=== PATIENT | female | born 1950 | race Two or more races ===

== ENCOUNTER 2017-01-30 22:57 | Inpatient (IN) | payer MEDICARE, MEDICAID ==
[~2017-01-30] VITALS: Ht 165.1 cm; Wt 104.3 kg
[~2017-01-30 22:57] MED LIST: ATOR40TA PO; BENA40TA2 PO; CARV25TA PO; DILT120C2 PO; FURO20TA4 PO; GABA-534 PO; GLIP10TA11 PO; HYDR-3652 PO; HYDR-4076 PO; INSU100V10 SQ; MECL-102 PO; OMEP20TA68 PO; WARF2.5T6 PO
--- NOTE | 2017-01-30 23:05 | NUR ---
To bed 5 a 66 yo female bibniece with c/o sob x2days, per patient she has history of chf and the sob has gotten "worse today." Patient is aaox4, dyspneic, tachypneic at 24, satting at 89-92% on room air, afib controlled at 80's on the monitor. Kept hob elevated. electroformer on. Gowned. Initiated comfort measures. Awaiting for er md espinosa.
[2017-01-30] MEDS ORDERED: FUROSEMIDE 40 MG/4 ML VIAL ONE (23:28)
[2017-01-30] MEDS ORDERED: NITROGLYCERIN PACKET 1 GM PACKET ONE (23:28)
--- NOTE | 2017-01-30 23:29 | NUR ---
started a saline lock on the lac g18, blood drawn and sent to lab.
[2017-01-30] MEDS ORDERED: NITROGLYCERIN PACKET 1 GM PACKET TD ONE (23:30)
[2017-01-30] MEDS ORDERED: FUROSEMIDE 40 MG/4 ML VIAL IV ONE (23:30)
--- NOTE | 2017-01-30 23:36 | NUR ---
Medicated patient as ordered by .
[2017-01-30 23:38] LABS: BASOPHILS % (AUTO) 0.1 % (0.0-2.0); EOSINOPHILS # (AUTO) 0.3 /CMM (0.0-0.7); EOSINOPHILS % (AUTO) 2.5 % (0.0-6.0); HEMATOCRIT 34 % (33-45); LYMPHOCYTES # (AUTO) 1.2 /CMM (0.8-4.8); LYMPHOCYTES % (AUTO) 10.4 % (20.0-44.0); MEAN CORPUSCULAR HEMOGLOBIN 27 PG (26.0-33.0); MEAN CORPUSCULAR HGB CONC 32 g/dl (31.0-36.0); MEAN CORPUSCULAR VOLUME 84 fL (82-100); MONOCYTES # (AUTO) 0.6 /CMM (0.1-1.30); MONOCYTES % (AUTO) 4.7 % (2.0-12.0); NEUTROPHILS # (AUTO) 9.8 /CMM (1.8-8.9); NEUTROPHILS % (AUTO) 82.3 % (43.0-81.0); PLATELET COUNT (AUTO) 216 /CMM (150-450); RDW COEFFICIENT OF VARIATION 16.4 (11.5-15.0); RED BLOOD CELL COUNT(AUTO) 4.09 MIL/uL (4.0-5.2); WHITE BLOOD COUNT (AUTO) 11.9 K/uL (4.3-11.0)
[2017-01-30 23:47] LABS: CARBON DIOXIDE 37 mmol/L (21-32); CHLORIDE 102 mmol/L (98-107); GFR 55 mL/min (>60); GLUCOSE 133 mg/dL (74-106); POTASSIUM 4.9 mmol/L (3.5-5.1); SODIUM SERUM 140 mmol/L (136-145); UREA NITROGEN, BLOOD 27 mg/dL (7-18)
[2017-01-30 23:50] LABS: INR 1.06 (0.87-1.13); PROTHROMBIN TIME 11.4 SECS (9.5-12.7)
[2017-01-30] MEDS ORDERED: VENL75TA4 PO (23:52)
[2017-01-30] MEDS ORDERED: MAGN400T6 PO (23:52)
[2017-01-30] MEDS ORDERED: ASPI81TA2 PO (23:52)
[2017-01-30 23:55] LABS: TROPONIN I < 0.017 ng/mL (0.00-0.056)
[2017-01-30 23:59] LABS: ALANINE AMINOTRANSFERASE 51 U/L (12-78); ALBUMIN 3.2 g/dL (3.4-5.0); ALKALINE PHOSPHATASE 87 U/L (46-116); ASPARTATE AMINOTRANSFERASE 27 U/L (15-37); B-TYPE NATRIURETIC PEPTIDE 4201 PG/ML (0-125); BILIRUBIN,DIRECT 0.2 mg/dL (0.0-0.2); BILIRUBIN,TOTAL 0.8 mg/dL (0.2-1.0); TOTAL PROTEIN, SERUM 7.4 g/dL (6.4-8.2)
[2017-01-31] MEDS ORDERED: APIX5TAB PO (00:22)
[2017-01-31] MEDS ORDERED: FUROSEMIDE 40 MG/4 ML VIAL IV SCH (01:00)
[2017-01-31] MEDS ORDERED: MECLIZINE HCL 25 MG TABLET PO PRN (01:00)
--- NOTE | 2017-01-31 01:29 | NUR ---
transported to tele bed via als protocol, no incident noted.
[2017-01-31 01:39] VITALS: BP 136/90
--- NOTE | 2017-01-31 02:16 | NUR ---
RN NOTE. ADMISSION. RECEIVED THE PT FROM ER VIA [employer]. PT AWAKE, ALERT, FOLLOW COMMANDS. 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 SALINE LOCK. FC PATENT. URINE DRAINING. ARLIN LOWER EXTREMITY [id number] AND REDNESS. NOTED. ELEVATED WITH PILLOW. AFEBRILE. HOB ELEVATED. TURN AND REPOSITION PT INDEPENDENT. WILL CONTINUE TO MONITOR VITALS.
--- NOTE | 2017-01-31 02:37 | NUR ---
RN NOTES SPOKE TO DR CURTIS TO CLARIFY ORDERS. PATIENT RECEIVED LASIX 40MG IV IN ER @ 2330. ADMISSION ORDERS FOR LASIX 40MG IVP @0100. PER DR CURTIS, HOLD 0100 DOSE OF LASIX 40MG IVP
[2017-01-31 04:00] VITALS: BP 130/58
--- NOTE | 2017-01-31 06:18 | NUR ---
RN NOTE. AM CARE. ORAL CARE, BED BATH GIVEN. LINEN CHANGED. REMAINING SAME OXYGEN TOLERATED WELL. SAT 98%. NO ACUTE DISTRESS NOTED. 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 HOB ELEVATED. TURN AND REPOSITION Q2H. WILL CONTINUE TO MONITOR VITALS.
[2017-01-31 08:00] VITALS: BP 146/71
[2017-01-31] MEDS ORDERED: Medication Not On Formulary EA (Omeprazole 1 TAB) PO SCH (09:00)
[2017-01-31] MEDS ORDERED: GABAPENTIN 300 MG CAPSULE PO SCH (09:00)
[2017-01-31] MEDS ORDERED: BENAZEPRIL HCL 20 MG TABLET PO SCH (09:00)
[2017-01-31] MEDS: ASPIRIN 81 MG TAB.CHEW PO SCH (09:57)
[2017-01-31] MEDS: FUROSEMIDE 40 MG/4 ML VIAL IV SCH ×2 (09:57→17:12)
[2017-01-31] MEDS: DILTIAZEM HCL CD 120 MG PO SCH (09:58)
[2017-01-31] MEDS: MAGNESIUM OXIDE 400 MG TABLET PO SCH ×2 (09:59→17:12)
[2017-01-31] MEDS: VENLAFAXINE XR 75 MG CAP.SR.24H PO SCH (09:59)
[2017-01-31] MEDS: CARVEDILOL 12.5 MG TABLET PO SCH ×2 (09:59→21:06)
[2017-01-31] MEDS: glipiZIDE 10 MG TABLET PO SCH ×2 (09:59→17:12)
[2017-01-31] MEDS: hydrALAZINE HCL 25 MG TABLET PO SCH ×3 (10:01→17:13)
[2017-01-31] MEDS: PANTOPRAZOLE 40 MG/PACK PACK GT SCH (10:18)
[2017-01-31 12:00] VITALS: BP 139/66
[2017-01-31] MEDS: APIXABAN 5 MG TABLET PO SCH ×2 (12:14→17:14)
[2017-01-31 16:00] VITALS: BP 118/64
[2017-01-31] MEDS: ATORVASTATIN 40 MG TABLET PO SCH (17:12)
--- NOTE | 2017-01-31 19:40 | NUR ---
CONSTRUCTION LINEMAN INITIAL NOTES RECEIVED PATIENT AWAKE A/OX4, ABLE TO MAKE NEEDS KNOWN. DENIES PAIN OR DISCOMFORT. PATIENT STATES SHE'S COMFORTABLE AT THIS TIME. RESPIRATIONS EVEN AND UNLABORED ON 2LPMO2 VIA NC. DENIES SOB. ON TELE MONITOR AFIB CONTROLLED. SKIN WARM AND DRY TO TOUCH. WITH LAC 18G PATENT AND INTACT. SIDE RAILS UP AND LOCKED. BED KEPT AT LOWEST POSITION. CALL LIGHT KEPT WITHIN EASY REACH. WILL CONTINUE TO MONITOR.
[2017-01-31 20:00] VITALS: BP 126/74
[2017-01-31] MEDS: GABAPENTIN 300 MG CAPSULE PO SCH (21:07)
[2017-01-31] MEDS: INSULIN DETEMIR 100 UNIT/ML CARTRIDGE SQ SCH (21:08)
[2017-02-01] VITALS: BP 119/63
[2017-02-01 04:00] VITALS: BP 127/59
[2017-02-01 06:35] LABS: BASOPHILS % (AUTO) 0.3 % (0.0-2.0); EOSINOPHILS # (AUTO) 0.3 /CMM (0.0-0.7); EOSINOPHILS % (AUTO) 2.9 % (0.0-6.0); HEMATOCRIT 32 % (33-45); HEMOGLOBIN 10.3 g/dL (11.5-14.8); LYMPHOCYTES # (AUTO) 1.4 /CMM (0.8-4.8); LYMPHOCYTES % (AUTO) 14.7 % (20.0-44.0); MEAN CORPUSCULAR HEMOGLOBIN 27 PG (26.0-33.0); MEAN CORPUSCULAR HGB CONC 32 g/dl (31.0-36.0); MEAN CORPUSCULAR VOLUME 84 fL (82-100); MONOCYTES # (AUTO) 0.7 /CMM (0.1-1.30); MONOCYTES % (AUTO) 7.2 % (2.0-12.0); NEUTROPHILS # (AUTO) 7.1 /CMM (1.8-8.9); NEUTROPHILS % (AUTO) 74.9 % (43.0-81.0); PLATELET COUNT (AUTO) 194 /CMM (150-450); RDW COEFFICIENT OF VARIATION 16.3 (11.5-15.0); RED BLOOD CELL COUNT(AUTO) 3.85 MIL/uL (4.0-5.2); WHITE BLOOD COUNT (AUTO) 9.5 K/uL (4.3-11.0)
[2017-02-01 07:04] LABS: TROPONIN I < 0.017 ng/mL (0.00-0.056)
[2017-02-01 07:10] LABS: CHOLESTEROL 79 mg/dL (<200); HDL CHOLESTEROL 37 mg/dL (40-60); LDL 41 mg/dL (0-99); TRIGLYCERIDES 56 mg/dL (30-150)
[2017-02-01 07:14] LABS: ALANINE AMINOTRANSFERASE 37 U/L (12-78); ALBUMIN 2.8 g/dL (3.4-5.0); ALKALINE PHOSPHATASE 79 U/L (46-116); ASPARTATE AMINOTRANSFERASE 22 U/L (15-37); B-TYPE NATRIURETIC PEPTIDE 2408 PG/ML (0-125); BILIRUBIN,TOTAL 0.6 mg/dL (0.2-1.0); CALCIUM, SERUM 8.7 mg/dL (8.5-10.1); CARBON DIOXIDE 39 mmol/L (21-32); CHLORIDE 101 mmol/L (98-107); CREATININE 1.2 mg/dL (0.6-1.3); GFR 45 mL/min (>60); GLUCOSE 144 mg/dL (74-106); MAGNESIUM 1.7 mg/dL (1.8-2.4); POTASSIUM 4.6 mmol/L (3.5-5.1); SODIUM SERUM 143 mmol/L (136-145); TOTAL PROTEIN, SERUM 6.7 g/dL (6.4-8.2); UREA NITROGEN, BLOOD 34 mg/dL (7-18)
[2017-02-01] MEDS ORDERED: PANTOPRAZOLE 40 MG TABLET.DR PO SCH (07:30)
--- NOTE | 2017-02-01 07:30 | NUR ---
PLATE FITTER CLOSING NOTES NO SIGNIFICANT CHANGES OVERNIGHT. ALL NEEDS ANTICIPATED AND MET. STRICT I & O. NO C/O SOB. DENIES PAIN OR DISCOMFORT. AFIB CONTROLLED ON MONITOR. NO RESPIRATORY DISTRESS NOTED, ON 2LPMO2 VIA NC. SKIN WARM AND DRY TO TOUCH. HOB ELEVATED. F/C DRAINING. SIDE RAILS UP AND LOCKED. BED KEPT AT LOWEST POSITION. CALL LIGHT KEPT WITHIN EASY REACH. CONTINUITY OF CARE ENDORSED TO AM NURSE.
[2017-02-01 08:00] VITALS: BP 117/65
[2017-02-01] MEDS: PANTOPRAZOLE 40 MG/PACK PACK GT SCH (08:56)
[2017-02-01] MEDS: APIXABAN 5 MG TABLET PO SCH ×2 (08:56→17:10)
[2017-02-01] MEDS: VENLAFAXINE XR 75 MG CAP.SR.24H PO SCH (08:56)
[2017-02-01] MEDS: FUROSEMIDE 40 MG/4 ML VIAL IV SCH (08:56)
[2017-02-01] MEDS: ASPIRIN 81 MG TAB.CHEW PO SCH (08:56)
[2017-02-01] MEDS: glipiZIDE 10 MG TABLET PO SCH ×2 (08:57→17:10)
[2017-02-01] MEDS: MAGNESIUM OXIDE 400 MG TABLET PO SCH ×2 (08:57→17:10)
[2017-02-01] MEDS: CARVEDILOL 12.5 MG TABLET PO SCH ×2 (08:58→21:00)
[2017-02-01] MEDS: BENAZEPRIL HCL 10 MG TABLET PO SCH (08:59)
[2017-02-01] MEDS: DILTIAZEM HCL CD 120 MG PO SCH (08:59)
[2017-02-01] MEDS: hydrALAZINE HCL 25 MG TABLET PO SCH ×3 (08:59→17:10)
[2017-02-01 10:34] LABS: APPEARANCE,URINE SL CLOUDY (CLEAR); BILIRUBIN,URINE NEGATIVE (NEGATIVE); BLOOD, URINE 3+ Ery/uL (NEGATIVE); COLOR,URINE YELLOW (YELLOW); KETONES,URINE NEGATIVE (NEGATIVE); LEUKOCYTE ESTERASE ,URINE 1+ (NEGATIVE); NITRITE, URINE POSITIVE (NEGATIVE); PROTEIN,URINE 1+ mg/dl (NEGATIVE); UGLUCOSE NEGATIVE (NEGATIVE); UROBILINOGEN,URINE 0.2 EU/dL (0.2)
[2017-02-01 10:42] LABS: BACTERIA,URINE Many /HPF (None Seen)
[2017-02-01 10:43] LABS: ADD URINE CULTURE YES; HYALINE CASTS, URINE Rare /LPF (None Seen); SQUAMOUS EPITHELIAL CELL,UR Few /HPF (None Seen)
[2017-02-01 10:44] LABS: MUCUS,URINE Rare /LPF (None Seen)
[2017-02-01] MEDS ORDERED: IV SET PRIMARY PUMP SET 1 EA INFUS.SET MC ONE ×2 (11:24→15:30)
[2017-02-01] MEDS: Magnesium 1GM/D5W 100ML PREMIX 100 ML IV SCH ×2 (11:36→13:00)
[2017-02-01 12:00] VITALS: BP 120/73
[2017-02-01] MEDS: CEFTRIAXONE 1 G in IV D5W 50 ML IV SCH (15:41)
[2017-02-01 16:00] VITALS: BP 102/63
[2017-02-01] MEDS: ATORVASTATIN 40 MG TABLET PO SCH (17:10)
[2017-02-01 20:00] VITALS: BP 107/63
--- NOTE | 2017-02-01 20:00 | NUR ---
TRANSCRIPTIONIST NOTES RECEIVED PTS ON BED AWAKE ALERT AND RESPONSIVE ABLE TO MAKE NEEDS KNOWN. PTS ON TELE AFIB CONTROLLED ON THE MONITOR ON 2 LITERS OF 02 VIA NC SATING 96%.NO SOB NO DISTRESS NOTED DENIES PAIN AT THIS TIME , V/S STABLE AFEBRILE , ALL NEEDS ATTENDED TOO CALL LIGHT WITHIN REACH ALL DUE MEDS GIVEN ORDERED .KEPT PTS CLEAN DRY AND COMFORTABLE.
[2017-02-01] MEDS: GABAPENTIN 300 MG CAPSULE PO SCH (21:01)
[2017-02-01] MEDS: INSULIN DETEMIR 100 UNIT/ML CARTRIDGE SQ SCH (21:09)
--- NOTE | 2017-02-01 21:12 | NUR ---
VEGETABLE WASHER NOTES BLOOD SUGAR FOR 10 PM IS 188 =LEVEMIR 15 UNITS GIVEN ORDERED, PTS ON PO OFFERED SNACK, WILL CONTINUE TO MONITOR.
[2017-02-02] VITALS: BP 123/63
--- NOTE | 2017-02-02 02:55 | NUR ---
Pt. c/o right back and shoulder pain of 9 on the pain scale not relieved with repositioning. Called Dr. Vernell Thayer attractions associate MD. Order for Tramadol 50mg q8h prn pain. Given at 0303 and warm packs placed on pt's right scapula. Repositioned at this time to supine. Will continue to monitor and reassess pain as appropriate. Pt. vital signs stable at this time. Bp-125/56, hr-78, RR-20, Sat-945 on 2L/NC.
[2017-02-02] MEDS ORDERED: TRAMADOL HCL 50 MG TABLET ONE (02:57)
[2017-02-02] MEDS: TRAMADOL HCL 50 MG TABLET PO PRN ×3 (03:03→21:12)
[2017-02-02 04:00] VITALS: BP_SYST 132; BP_DIAS 62; BP_DIAS 63
--- NOTE | 2017-02-02 06:47 | NUR ---
Vital signs stable. In bed comfortable. Dozing intermittently. No significant changes. Will endorse to next shift for continuity of care.
--- NOTE | 2017-02-02 07:00 | NUR ---
RN NOTES RECEIVED PATIENT ON BED, A/OX4, ABLE TO MAKE NEEDS KNOWN. RESPIRATION EVEN AND UNLABORED , ON TELE MONITOR AFIB CONTROLLED. SKIN WARM AND DRY TO TOUCH. LAC 18G PATENT AND INTACT. SIDE RAILS UPx3, BED IS IN LOWEST POSITION AND LOCKED , CALL LIGHT WITHIN EASY REACH. WILL CONTINUE TO MONITOR PT CLOSELY AND NOTIFY MD FOR ANY SIGNIFICANT CHANGES
[2017-02-02 07:59] LABS: CALCIUM, SERUM 8.5 mg/dL (8.5-10.1); CREATININE 1.2 mg/dL (0.6-1.3); PHOSPHORUS 4.4 mg/dL (2.5-4.9); POTASSIUM 4.6 mmol/L (3.5-5.1)
[2017-02-02 08:00] VITALS: BP 141/69
[2017-02-02] MEDS: PANTOPRAZOLE 40 MG/PACK PACK GT SCH (08:59)
[2017-02-02] MEDS: FUROSEMIDE 40 MG/4 ML VIAL IV SCH ×2 (08:59→16:32)
[2017-02-02] MEDS: VENLAFAXINE XR 75 MG CAP.SR.24H PO SCH (09:00)
[2017-02-02] MEDS: glipiZIDE 10 MG TABLET PO SCH ×2 (09:00→16:31)
[2017-02-02] MEDS: ASPIRIN 81 MG TAB.CHEW PO SCH (09:00)
[2017-02-02] MEDS: DILTIAZEM HCL CD 120 MG PO SCH (09:00)
[2017-02-02] MEDS: BENAZEPRIL HCL 10 MG TABLET PO SCH (09:01)
[2017-02-02] MEDS: hydrALAZINE HCL 25 MG TABLET PO SCH ×3 (09:01→16:33)
[2017-02-02] MEDS: CARVEDILOL 12.5 MG TABLET PO SCH ×2 (09:02→21:16)
[2017-02-02] MEDS: APIXABAN 5 MG TABLET PO SCH ×2 (09:02→16:32)
[2017-02-02] MEDS: MAGNESIUM OXIDE 400 MG TABLET PO SCH ×2 (09:02→16:31)
[2017-02-02 12:00] VITALS: BP 128/46
[2017-02-02] MEDS: CEFTRIAXONE 1 G in IV D5W 50 ML IV SCH (12:57)
--- NOTE | 2017-02-02 14:00 | NUR ---
RN NOTES PT REFUSED PHYSICAL THERAPY , STATED WANTS TO GO HOME INSTEAD OF REHAB, EBONY PLUMMER NOTIFIED.
[2017-02-02] MEDS ORDERED: INSULIN REGULAR, HUMAN 100 UNIT/ML 3 ML VIAL SQ PRN (15:30)
[2017-02-02] MEDS ORDERED: DEXTROSE 50%-WATER 50 ML DISP.SYRIN IV PRN (15:30)
[2017-02-02 16:00] VITALS: BP 130/72
[2017-02-02] MEDS: BLOOD SUGAR DIAGNOSTIC 1 EACH STRIP IN SCH ×2 (16:32→21:20)
[2017-02-02] MEDS: ATORVASTATIN 40 MG TABLET PO SCH (17:19)
[2017-02-02] MEDS ORDERED: BLOOD SUGAR DIAGNOSTIC 1 EACH STRIP IN SCH (17:30)
--- NOTE | 2017-02-02 18:25 | NUR ---
RN NOTES PT STABLE, RESPIRATION EVEN AND UNLABORED, L AC IV SITE CDI, PT STABLE, MEDICATED PER MD ORDER, NO SIGNIFICANT CHANGES NOTED ON THIS SHIFT .
[2017-02-02 20:00] VITALS: BP 154/63
--- NOTE | 2017-02-02 20:00 | NUR ---
BUCKLE ATTACHING MACHINE OPERATOR NOTE Received pt report from day RN. Pt in bed and VSS. Afebrile. No s/s of distress. All needs attended to. Will continue to monitor.
[2017-02-02] MEDS: GABAPENTIN 300 MG CAPSULE PO SCH (21:12)
[2017-02-02] MEDS: INSULIN DETEMIR 100 UNIT/ML CARTRIDGE SQ SCH (21:19)
--- NOTE | 2017-02-02 21:56 | NUR ---
Blood sugar for 2200 is 143. Levemir 15 units given SQ per order. Regular insulin sliding scale 2units was not administered secondary to pt. refusal. Pt. is PO and eating a snack at this time. Will check blood sugar in the AM. Pt. c/o right shoulder and scapula pain of an 7/10 on the pain scale. Utlram 50mg po given as ordered. Will reassess in one hour per pain protocol. All due meds given as ordered. All needs attended to. Keep patient comfortable.
[2017-02-03] VITALS: BP 139/54
[2017-02-03 04:00] VITALS: BP 111/56
--- NOTE | 2017-02-03 06:11 | NUR ---
qualitative executive researcher Closing Note Pt. resting comfortably in bed. No c/o pain or distress. VSS. Tele monitor remains A-fib controlled. Pt. instructed to call nurse for needs or assist. Will keep comfortable. All needs attended to.
[2017-02-03] MEDS: BLOOD SUGAR DIAGNOSTIC 1 EACH STRIP IN SCH ×3 (07:30→17:00)
[2017-02-03 08:00] VITALS: BP 103/37
[2017-02-03] MEDS: ASPIRIN 81 MG TAB.CHEW PO SCH (08:59)
[2017-02-03] MEDS: glipiZIDE 10 MG TABLET PO SCH ×2 (08:59→16:59)
[2017-02-03] MEDS: VENLAFAXINE XR 75 MG CAP.SR.24H PO SCH (08:59)
[2017-02-03] MEDS: MAGNESIUM OXIDE 400 MG TABLET PO SCH ×2 (08:59→16:59)
[2017-02-03] MEDS: PANTOPRAZOLE 40 MG/PACK PACK GT SCH (08:59)
[2017-02-03] MEDS: hydrALAZINE HCL 25 MG TABLET PO SCH ×3 (09:00→16:58)
[2017-02-03] MEDS: DILTIAZEM HCL CD 120 MG PO SCH (09:00)
[2017-02-03] MEDS: BENAZEPRIL HCL 10 MG TABLET PO SCH (09:00)
[2017-02-03] MEDS: FUROSEMIDE 40 MG/4 ML VIAL IV SCH ×2 (09:00→16:57)
[2017-02-03] MEDS: CARVEDILOL 12.5 MG TABLET PO SCH (09:01)
[2017-02-03] MEDS: APIXABAN 5 MG TABLET PO SCH ×2 (09:09→17:00)
[2017-02-03] MEDS: TRAMADOL HCL 50 MG TABLET PO PRN (09:09)
[2017-02-03 12:00] VITALS: BP 98/37
[2017-02-03] MEDS: CEFTRIAXONE 1 G in IV D5W 50 ML IV SCH (12:50)
[2017-02-03 16:00] VITALS: BP 94/52
[2017-02-03 16:58] VITALS: BP 94/52
[2017-02-03] MEDS: ATORVASTATIN 40 MG TABLET PO SCH (16:59)
--- NOTE | 2017-02-03 19:45 | NUR ---
MILITARY TECHNICIAN NOTES PTS DISCHARGE BY VIVIEN BROOKS TO [facility] IN STABLE CONDITION DISCHARGE INSTRUCTION AND TEACHING GIVEN BY CECILIA, RESPONSIBLE REPUBLICAN MADE AWARE, V/S STABLE AFEBRILE, PTS BELONGINGS GIVEN TO PTS.
[2017-02-04] MEDS ORDERED: FUROSEMIDE 40 MG TABLET PO SCH (09:00)
== END 2017-02-03 21:46 | DRG 291 ==
LOC: ER 23:01 → TELE-TD 01-31 00:49 → TELE1 01-31 01:03
PROVIDERS: ADMIT Internal Medicine; ATTEND Internal Medicine
DX: I11.0 Hypertensive heart disease with heart failure (principal); J96.01 Acute respiratory failure with hypoxia; E44.0 Moderate protein-calorie malnutrition; N39.0 Urinary tract infection, site not specified; N17.9 Acute kidney failure, unspecified; D68.59 Other primary thrombophilia; Z68.41 Body mass index [BMI] 40.0-44.9, adult; Z79.01 Long term (current) use of anticoagulants; G62.9 Polyneuropathy, unspecified; K21.9 Gastro-esophageal reflux disease without esophagitis; E03.9 Hypothyroidism, unspecified; D72.829 Elevated white blood cell count, unspecified; E78.5 Hyperlipidemia, unspecified; I25.10 Atherosclerotic heart disease of native coronary artery without angina pectoris; I48.2 Chronic atrial fibrillation; I50.43 Acute on chronic combined systolic (congestive) and diastolic (congestive) heart failure; I44.7 Left bundle-branch block, unspecified; I27.2 Other secondary pulmonary hypertension; Z79.4 Long term (current) use of insulin; E66.01 Morbid (severe) obesity due to excess calories; D63.8 Anemia in other chronic diseases classified elsewhere; B96.20 Unspecified Escherichia coli [E. coli] as the cause of diseases classified elsewhere; T50.2X5A Adverse effect of carbonic-anhydrase inhibitors, benzothiadiazides and other diuretics, initial encounter; F32.9 Major depressive disorder, single episode, unspecified; E10.9 Type 1 diabetes mellitus without complications; I07.1 Rheumatic tricuspid insufficiency; I34.0 Nonrheumatic mitral (valve) insufficiency; I35.8 Other nonrheumatic aortic valve disorders
CPT/HCPCS: 36415; 71010-TC; 80048-TC; 80053-TC; 80061-TC; 80076-TC; 80162-TC; 81000-TC; 82962-TC; 83735-TC; 83880; 84100-TC; 84484-TC; 85025-TC; 85730-TC; 87040-TC; 87086-TC; 87186-TC; 93307-TC; 94799-TC; 97001-TC; A4217; A4606; J0696; J1815; J1940; J3475; J7060; Z7610